=== PATIENT | female | born 1960 ===

== ENCOUNTER 2016-12-31 06:45 | Day surgery (SDC) | payer SELFPAY ==
[2016-12-25 15:25] VITALS: BMI 29.2
[2016-12-31] MEDS ORDERED: Midazolam 2 MG/2 ML VIAL ONE ×2 (07:16→08:25)
[2016-12-31] MEDS ORDERED: Rocuronium 10 mg/ml (5 ml) ONE (07:16)
[2016-12-31] MEDS ORDERED: Succinylcholine 200 mg/10 ml Inj IV ONE (07:16)
[2016-12-31] MEDS ORDERED: Propofol 10 mg/ml Inj (20 ML) ONE ×2 (07:16→08:25)
[2016-12-31] MEDS ORDERED: ePHEDrine 50 mg/ml Inj ONE (07:16)
[2016-12-31] MEDS ORDERED: Lactated Ringer's 1,000 ML IV ONE ×3 (07:45)
[2016-12-31] MEDS ORDERED: Lidocaine 1% Inj (20ml) ONE (07:50)
[2016-12-31] MEDS ORDERED: Lidocaine 1% Inj (20ml) IJ ONE (08:24)
[2016-12-31] MEDS ORDERED: Oxycodone/Acetaminophen 5/325 mg Tab PO PRN (08:51)
--- NOTE | 2016-12-31 08:51 | PCM.SURG1 ---
Surgeon's Initial Post Op Note - Surgeon's Notes Surgeon: Dr. Mitchell Scrap Handler: [id number] Type of Anesthesia: IV Sedation Pre-Operative Diagnosis: Lipoma of Left Upper Extremity Operative Findings: see op note Post-Operative Diagnosis: same Operation Performed: Excision of lipoma of left upper extremity Specimen/Specimens Removed: Lipoma of left UE Estimated Blood Loss: EBL {In ML}: 5 Drains Used: No Drains Post-Op Condition: Good Date of Surgery/Procedure: 12/31/16 Time of Surgery/Procedure: 08:00
[2016-12-31 09:58] VITALS: RESP 18
[2016-12-31 10:53] VITALS: BP 109/61; PULSE 55; TEMP 97.5; O2SAT 99
--- NOTE | 2017-01-02 11:55 | CP.SDSHP ---
Same Day Surgery H & P - Allergies Allergies: Allergies No Known Allergies Allergy (Verified 02/17/16 14:34) Short Stay Discharge - Short Stay Discharge Admitting Diagnosis/Reason for Visit: D17.9 Disposition: HOME/ ROUTINE Referrals: Asiya Alan MD [Primary Care Provider] - Follow-up: [facility] one week Progress Note/Discharge Note with Instructions: Dressing dry and intact; No neuro/vascular deficit. Stable postop
--- NOTE | 2017-01-02 20:13 | OP ---
PROCEDURE DATE: 12/31/2016 SURGEON: Keren Mitchell MD PROMOTIONS EXECUTIVE: Dr. Yeh. ANESTHESIA: Local with IV sedation. ANESTHESIA ADMINISTERED BY: PREOPERATIVE DIAGNOSIS: Lipoma of left upper extremity. POSTOPERATIVE DIAGNOSIS: Lipoma of left upper extremity. PROCEDURE: Excision of lipoma, left upper extremity. DESCRIPTION OF OPERATION: The patient in the supine position having received IV sedation the left arm was prepped and draped in the usual sterile manner. A 4 cm soft mass was palpable in the lateral portion of the antecubital fossa and the skin overlying this was infiltrated with 1% lidocaine. A transverse incision was made, taken down through the subcutaneous tissue and a smooth slightly lobulated yellow mass was identified and freed circumferentially from the surrounding subcutaneous tissue. A single locule was noted to pass medially under a tendon and again this was freed up and expressed into the wound and removed along with the remainder of the mass. The operative site was examined for hemostasis and closure was performed with running subcuticular suture of 4-0 Monocryl and Steri-Strips. Dry sterile dressing was applied. The patient tolerated the procedure well and transferred to recovery room in stable condition. Estimated blood loss for the procedure was 5 ml. Keren Mitchell MD
== END 2016-12-31 11:04 | disposition home or self-care (01) ==
LOC: H.OPSURG 06:45
PROVIDERS: ATTEND Specialist
DX: D17.22 Benign lipomatous neoplasm of skin and subcutaneous tissue of left arm (principal)
CPT/HCPCS: 24071; 88304; J0330; J2001; J2250; J2704; J3010; J7030; J7120

== ENCOUNTER 2017-03-19 10:08 | Day surgery (SDC) | payer OTHER, SELFPAY ==
[2016-12-25 09:00] VITALS: BMI 29.2
[2017-03-19] MEDS ORDERED: Lactated Ringer's 1,000 ML IV ONE (11:36)
[2017-03-19 11:38] VITALS: TEMP 97.5
[2017-03-19] MEDS ORDERED: Propofol 10 mg/ml Inj (20 ML) ONE (13:18)
[2017-03-19] MEDS ORDERED: Lidocaine 2% MPF (5 ml) Inj ONE (13:19)
[2017-03-19 13:52] VITALS: BP 101/59; PULSE 60; RESP 15; O2SAT 99
== END 2017-03-19 14:03 | disposition home or self-care (01) ==
LOC: H.ENDO 10:08
PROVIDERS: ATTEND Internal Medicine Gastroenterology
DX: Z12.11 Encounter for screening for malignant neoplasm of colon (principal); K64.0 First degree hemorrhoids; K57.30 Diverticulosis of large intestine without perforation or abscess without bleeding
CPT/HCPCS: 45378; J2704; J7120